=== PATIENT | female | born 1950 | race Caucasian/White ===

== ENCOUNTER → 2020-03-28 | Outpatient (CLI) | payer MEDICARE ==
[~2020-03-28] MED LIST: ASPIR-LOW81 MG PO; ATORVASTATIN CA20 MG PO; CINNAMON500 MG PO; CREON DR 24,001 EACH PO; FUROSEMIDE40 MG PO; HUMALOG100 UNIT/3 SQ; LANTUS 3ML100 UNITS/ SQ; MAGNESIUM OXID400 MG PO; OMEPRAZOLE PO; OYSTER SHELL C1 EACH PO; PRESERVISION T1 EACH PO; TURMERIC1 GM PO; ULTRAM 50MG50 MG PO; VIT B 12 PO; VIT D 3 PO; VIT E PO
== END ==
LOC: US 12:57
PROVIDERS: ATTEND Family Medicine
DX: R80.9 Proteinuria, unspecified (principal); R05 Cough
CPT/HCPCS: 71046; 76770

== ENCOUNTER → 2021-01-09 | Outpatient (CLI) | payer MEDICARE | LOC: MRI 10:57 | PROVIDERS: ATTEND Family Medicine | DX: M25.561 Pain in right knee (principal); M79.604 Pain in right leg; S83.281D Other tear of lateral meniscus, current injury, right knee, subsequent encounter; R60.0 Localized edema ==